=== PATIENT | male | born 1990 | race Two or more races ===

== ENCOUNTER → 2024-12-14 | Outpatient (CLI) | payer MEDICAID, SELFPAY ==
--- NOTE | 2024-12-14 | XR_ITS ---
Examination: Left knee 4 views TECHNIQUE: AP oblique lateral axial left knee 4 views Exam date and time: December 14, 2024 1317 hours INDICATIONS: Left knee pain beginning several months ago FINDINGS: Severe osteopenia Advanced tricompartment osteoarthritis Moderate knee effusion No fracture IMPRESSION: Advanced tricompartment osteoarthritis
== END | disposition home or self-care (01) ==
PROVIDERS: PCP Physician Assistant; Referring Provider Physician Assistant; Visit Provider Physician Assistant
DX: M17.12 Unilateral primary osteoarthritis, left knee (principal)
CPT/HCPCS: 73564

== ENCOUNTER → 2025-04-14 | Outpatient (CLI) | payer MEDICAID, SELFPAY ==
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
== END | disposition home or self-care (01) ==
PROVIDERS: PCP Physician Assistant; Referring Provider Physician Assistant; Visit Provider Physician Assistant
DX: S09.90XA Unspecified injury of head, initial encounter (principal); H70.002 Acute mastoiditis without complications, left ear; H70.12 Chronic mastoiditis, left ear; X58.XXXA Exposure to other specified factors, initial encounter
CPT/HCPCS: 70460; A4649; Q9967